=== PATIENT | male | born 2000 | race Two or more races ===

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

== ENCOUNTER 2022-09-01 10:23 | Emergency (ER) | payer MEDICAID, OTHER ==
[~2022-09-01] VITALS: Ht 162.6 cm; Wt 59.0 kg
[2022-09-01 10:48] VITALS: BP 119/60
[2022-09-01] MEDS ORDERED: CEPH-510 PO (11:46)
[2022-09-01] MEDS ORDERED: NAPR500T31 PO (11:46)
== END 2022-09-01 11:51 | disposition home or self-care (01) ==
LOC: EDUNIT# 10:23 → ER 10:23 → EDBD 10:23 → ER 11:50
DX: S60.00XA Contusion of unspecified finger without damage to nail, initial encounter (principal); S00.83XA Contusion of other part of head, initial encounter; S50.812A Abrasion of left forearm, initial encounter; S50.811A Abrasion of right forearm, initial encounter; V43.52XA Car driver injured in collision with other type car in traffic accident, initial encounter; Y93.I9 Activity, other involving external motion; Y92.89 Other specified places as the place of occurrence of the external cause; Y99.8 Other external cause status
CPT/HCPCS: 73130